=== PATIENT | male | born 1945 | race Caucasian/White ===

== ENCOUNTER 2018-08-30 10:13 | Day surgery (SDC) | payer OTHER ==
[2018-08-30] MEDS ORDERED: ceFAZolin 2 GM/DEXTROSE 100 ML IV ONE (10:32)
[2018-08-30] MEDS ORDERED: LR 1,000 ML IV ONE (10:33)
[2018-08-30] MEDS ORDERED: LIDOCAINE 1% 2 ML INJ ID PRN (10:33)
[2018-08-30] MEDS ORDERED: BUPIVACAINE 0.5% 30 ML SDV ONE (11:03)
--- NOTE | 2018-08-30 11:52 | PDANEPAE ---
ANE History of Present Illness inguinal hernia ANE Past Medical History - Cardiovascular History Hx Hypertension: No Hx Arrhythmias: No Hx Chest Pain: No Hx Coronary Artery / Peripheral Vascular Disease: No Hx CHF / Valvular Disease: No Hx Palpitations: No - Pulmonary History Hx COPD: No Hx Asthma/Reactive Airway Disease: No Hx Recent Upper Respiratory Infection: No Hx Oxygen in Use at Home: No Hx Sleep Apnea: No Sleep Apnea Screening Result - Last Documented: Negative - Neurologic History Hx Cerebrovascular Accident: No Hx Seizures: No Hx Dementia: No - Endocrine History Hx Diabetes: No Hypothyroid: No Hyperthyroid: No Obesity: no - Renal History Hx Renal Disorders: Yes Renal History Comment: RENAL CANCERWITH r NEPHRECTOMY - Liver History Hx Hepatic Disorders: No - Neurological & Psychiatric Hx Hx Neurological and Psychiatric Disorders: No - Cancer History Hx Cancer: Yes Cancer History Comment: RENAL AND PROSTATE - Congenital Disorder History Hx Congenital Disorders: No - GI History Hx Gastrointestinal Disorders: Yes Gastrointestinal History Comment: DUODENAL ULCER - Other Health History Other Health History: INCREASED WAX TO EARS. MISSING TEETH - Chronic Pain History Chronic Pain: Yes (PERINEAL PAIN) - Surgical History Prior Surgeries: DUODENAL ULCER 2015. R NEPHRECTOMY ANE Review of Systems Review of systems is: negative Review of Systems: - Exercise capacity METS (RN): 4 METS ANE Patient History - Allergies Allergies/Adverse Reactions: codeine Allergy (Severe, Verified 08/29/18 19:35) Sulfa (Sulfonamide Antibiotics) Allergy (Intermediate, Verified 08/29/18 19:35) Hives Penicillins Allergy (Mild, Verified 08/29/18 19:35) Tetracyclines Allergy (Mild, Verified 08/29/18 19:35) alprazolam Allergy (Verified 08/29/18 19:36) Other-Enter Comments - Home Medications Home medications: home medication list seen and reviewed Home Medications: Acetaminophen 08/29/18 [Last Taken 08/29/18] Bicalutamide 08/29/18 [Last Taken 08/29/18] Cholecalciferol (Vitamin D3) 08/29/18 [Last Taken 08/29/18] Iron 08/29/18 [Last Taken 08/29/18] Loratadine 08/29/18 [Last Taken 08/29/18] Megestrol Acetate 08/29/18 [Last Taken 08/29/18] Tamsulosin HCl 08/29/18 [Last Taken 08/29/18] Topiramate 08/29/18 [Last Taken 08/29/18] - NPO status NPO Status: no food or drink >8 hours - Anes Hx Anes Hx: no prior problems - Smoking Hx Smoking Status: Former smoker - Family Anes Hx Family Anes Hx: none Family Hx Anesthesia Complications: NONE ANE Labs/Vital Signs - Labs Result Diagrams: 08/30/18 11:00 - Vital Signs Height: 175.26 cm Weight: 77.111 kg ANE Physical Exam - Airway Neck exam: FROM Mallampati Score: Class 2 Mouth exam: normal dental/mouth exam - Pulmonary Pulmonary: no respiratory distress, clear to auscultation - Cardiovascular Cardiovascular: regular rate and rhythym, no murmur, rub, or gallop - ASA Status ASA Status: II ANE Anesthesia Plan Anesthesia Plan: general endotracheal anesthesia
--- NOTE | 2018-08-30 12:33 | PDHPUP ---
History & Physical Update H&P update statement: This history and physical update is based on an assessment of the patient which was completed after admission or registration (within 24 hours), but prior to the surgery/procedure. H&P update: H&P reviewed & patient examined, no change in patient's condition since H&P completed
[2018-08-30] MEDS ORDERED: LIDOCAINE 2% 2 ML INJ ONE (12:44)
[2018-08-30] MEDS ORDERED: PROPOFOL 200 MG/20 ML VIAL ONE (12:44)
[2018-08-30] MEDS ORDERED: ROCURONIUM 50 MG/5 ML VIAL ONE (12:44)
[2018-08-30] MEDS ORDERED: fentaNYL 250 MCG/5 ML INJ ONE (12:44)
[2018-08-30] MEDS ORDERED: GLYCOPYRROLATE 0.2 MG/1 ML VIAL ONE ×2 (13:32)
[2018-08-30] MEDS ORDERED: ONDANSETRON 4 MG/2 ML VIAL ONE (13:32)
[2018-08-30] MEDS ORDERED: NEOSTIGMINE METHYLSULFATE 10 MG/10 ML MDV ONE (13:32)
[2018-08-30] MEDS ORDERED: PHENYLEPHRINE HCL 100 MCG/ML SYR IVP PRN (13:41)
[2018-08-30] MEDS ORDERED: ONDANSETRON 4 MG/2 ML VIAL IVP PRN (13:41)
[2018-08-30] MEDS ORDERED: NALOXONE HCL 0.4 MG/ML INJ IVP PRN (13:41)
[2018-08-30] MEDS ORDERED: LR 500 ML IV PRN (13:41)
[2018-08-30] MEDS ORDERED: SUGAMMADEX SODIUM 200 MG/2 ML VIAL IVP ONE (13:42)
--- NOTE | 2018-08-30 13:42 | POSTANESTH ---
Post Anesthetic Evaluation Cardiovascular Status: Normal, Stable Respiratory Status: Normal, Stable Level of Consciousness/Mental Status: Can Participate in Eval Pain Control: Adequate, Prn Tx Ordered Nausea/Vomiting Control: Adequate, Prn Tx Ordered Complications Possibly Related to Anesthesia: None Noted
--- NOTE | 2018-08-30 13:45 | POSTOPPROG ---
Post Op Note Date of Operation: 08/30/18 Surgeon: Cornelio Elizabeth Cold Rolling Machine Setter: Nedra Anesthesiologist: Angie Anesthesia: GET(General Endotracheal) Pre-op Diagnosis: LIH Post-op Diagnosis: same Indication: same Procedure: Lap LIH repair with mesh, exploration of R Findings: Direct LIH Inf/Abcess present in the surg proc area at time of surgery?: No Depth: Deep Incisional (Fascial) EBL: Minimal Bowel Protocol: N/A Clean Closure Performed: N/A
[2018-08-30] MEDS ORDERED: PROMETHAZINE HCL 25 MG/ML INJ IVP ONE (13:55)
[2018-08-30] MEDS ORDERED: PROMETHAZINE HCL 25 MG/ML INJ ONE (13:56)
[2018-08-30] MEDS ORDERED: fentaNYL 100 MCG/2 ML INJ ONE (14:08)
[2018-08-30] MEDS: fentaNYL 100 MCG/2 ML INJ IVP PRN ×2 (14:10→14:48)
[2018-08-30] MEDS ORDERED: PROMETHAZINE HCL 25 MG/ML INJ IVP PRN (14:17)
[2018-08-30] MEDS ORDERED: OXYCODONE/APAP 5/325 TAB ONE (14:56)
[2018-08-30] MEDS ORDERED: OXYCODONE/APAP 5/325 TAB PO PRN (15:04)
[2018-08-30 17:29] VITALS: BP 117/72
--- NOTE | 2018-08-31 12:37 | GOP ---
[f rep st] OPERATIVE REPORT DATE OF OPERATION: 08/30/2018 SURGEON: Cornelio Elizabeth MD SPACE ENGINEER: Purnima Sneed, nurse practitioner. ANESTHESIA: Dr. Adams. PREOPERATIVE DIAGNOSIS: Symptomatic left inguinal hernia. POSTOPERATIVE DIAGNOSIS: Symptomatic left inguinal hernia. PROCEDURE PERFORMED: Laparoscopic left inguinal hernia repair with mesh and exploration of the right . FINDINGS: Patient was found to have a large direct left inguinal hernia with no evidence of herniati on on the right. ESTIMATED BLOOD LOSS: Negligible. DESCRIPTION OF PROCEDURE: Patient was taken to the operating room where he received a satisfactory g eneral endotracheal anesthesia by Dr. Adams. He was placed in the supine position, prepped and draped in the usual sterile fashion. Infraumbilical incision was made. Dissection was extended down throu gh the subcutaneous tissue. He had a fair amount of scar tissue in the area from a previous upper ab dominal laparotomy incision. A subfascial tunnel was developed in the preperitoneal space, which was dissected free with a balloon dissector. This dissection was quite difficult and very inadequate se condary to previous scar tissue from his surgeries and from possible radiation effect from his prosta te treatments; however, a preperitoneal space was created. Two other trocars were placed in midline under direct vision. The area was then manually dissected free until Waqas ligament could be expose d bilaterally. The Waqas ligament was exposed, and the scar tissue was taken down. The cord was mo bilized. It was cleared. The peritoneum was dissected off the cord structures. There was no indire ct sac, and a space lateral to the cord was created as well. Covidien polyester mesh patch was then inserted. It was anchored in place with AbsorbaTack, securing it to Waqas ligament, to the lacunar ligament, the anterior abdominal wall, and the lateral abdominal wall outside the internal ring. The direct hernia defect tissue had been reduced and appeared to be quite viable. Attention was turned to the right side, which was dissected free in a similar manner, but there was n o evidence of herniation seen. Trocars were removed under direct vision. Trocar sites were closed w ith 0 Vicryl for the fascia, 4-0 Monocryl subcuticular stitch for the skin. All layers infiltrated w ith 0.5% Marcaine. COMPLICATIONS: No complications. Taken to recovery room in good condition. /[id number]/MODL
== END 2018-08-30 17:30 | disposition home or self-care (01) ==
LOC: FSGY 10:13
PROVIDERS: ATTEND Surgery
PROC: 0YU64JZ Supplement Left Inguinal Region with Synthetic Substitute, Percutaneous Endoscopic Approach (ICD-10-PCS; principal; 2018-08-30 11:45)
DX: K40.90 Unilateral inguinal hernia, without obstruction or gangrene, not specified as recurrent (principal); Z85.528 Personal history of other malignant neoplasm of kidney; Z90.5 Acquired absence of kidney; Z85.46 Personal history of malignant neoplasm of prostate
CPT/HCPCS: C1727; C1781; J0690; J2405; J2550; J2704; J3010